=== PATIENT | female | born 1990 | race Caucasian/White ===

== ENCOUNTER 2017-12-20 22:18 | Emergency (ER) | payer OTHER ==
--- OUTSIDE RECORDS SUMMARY | 2017-12-20 22:20 | XMS REPORT ---
:1990 Author Organization eClinicalWorks Care Team Providers Name Role Phone Castillo Fry Provider Role Unavailable Allergies No Known Allergies Problems Problem Type Condition Code Onset Dates Condition Status Assessment Encounter for supervision of Z34.91 Active low-risk in first trimester Assessment Encounter to determine O36.80X0 Active viability of , single or unspecified fetus Assessment Amenorrhea N91.2 Active Assessment Missed with demise O02.1 Active before 20 completed weeks of gestation Medications No Known Medications Results No Known Results Summary Purpose eClinicalWorks Submission
--- NOTE | 2017-12-21 00:27 | EDPHYS ---
Physician Documentation [facility] Name: Alley Allen Age: 27 yrs Sex: Female : 1990 Arrival Date: 12/20/2017 Time: 22:22 Bed 20 Private MD: ED Physician Albert Leroy HPI: 12/20 23:20 This 27 yrs old Female presents to ER via Ambulatory with complaints of cp Drainage From Eye. 23:20 The patient is experiencing matting or discharge, pain, redness, to the left eye. cp Onset: The symptoms/episode began/occurred this morning. APPLICATION SUPPORT DEVELOPER: 22:52 2, Full Term 1, Living 1, LMP 09/2017 tl3 Historical: - Allergies: 22:52 No Known Allergies; tl3 - Home Meds: 22:52 None [Active]; tl3 - PMHx: 22:52 None; tl3 - PSHx: 22:52 ; tl3 - Immunization history:: Adult Immunizations up to date. - Social history:: Smoking status: Patient/guardian denies using tobacco, never smoked. - Ebola Screening: : Patient denies travel to an Ebola-affected area in the 21 days before illness onset No symptoms or risks identified at this time. ROS: 23:30 Constitutional: Negative for body aches, chills, fever, poor PO intake. cp 23:30 Respiratory: Negative for shortness of breath, cough, wheezing, and pleuritic chest cp pain. 23:30 Eyes: Positive for discharge, matting, pain, redness, Negative for visual disturbance. 23:30 ENT: Negative for drainage from ear(s), ear pain, sore throat, difficulty swallowing, difficulty handling secretions. 23:30 Skin: Negative for cellulitis, rash. 23:30 All other systems are negative. Exam: 23:35 Head/Face: Normocephalic, atraumatic. cp 23:35 Constitutional: The patient appears in no acute distress, alert, awake, non-toxic, well developed, well nourished. 23:35 Eyes: Periorbital structures: appear normal, Pupils: equal, round, and reactive to light and accomodation, Extraocular movements: intact throughout, Conjunctiva: exudate, in the left eye, injected, in the left eye, Corneas: are normal, no foreign body, Sclera: no appreciated abnormality, Anterior chamber: normal, no hyphema, Lids and lashes: drainage, from the left eye, Examination of the other eye reveals no obvious gross abnormality, right eye. 23:35 ENT: External ear(s): are unremarkable, Ear canal(s): are normal, clear, TM's: bulging, is not appreciated, bilaterally, dullness, bilaterally, erythema, is not appreciated, bilaterally, Nose: is normal, Mouth: Lips: moist, Oral mucosa: pink and intact, moist, Posterior pharynx: is normal, airway is patent, no erythema, no exudate, Voice: is normal. 23:35 Neck: ROM/movement: is normal, is supple, without pain, no range of motions limitations, no nuchal rigidity, Lymph nodes: no appreciated lymphadenopathy. 23:35 Chest/axilla: Inspection: normal. 23:35 Cardiovascular: Rate: tachycardic, Rhythm: regular. 23:35 Respiratory: the patient does not display signs of respiratory distress, Respirations: normal, no use of accessory muscles, no retractions, no splinting, no tachypnea. 23:35 Abdomen/GI: Exam negative for discomfort, distension, guarding, Inspection: abdomen appears normal. 23:35 Skin: cellulitis, is not appreciated, no rash present. Vital Signs: 22:52 BP 94 / 64; Pulse 100; Resp 18; Temp 99.3(O); Pulse Ox 100% ; Weight 49.9 kg; Height 5 tl3 ft. 3 in. (160.02 cm); 22:52 Body Mass Index 19.49 (49.90 kg, 160.02 cm) tl3 Visual Acuity: 23:35 ; PT WEARS CORRECTIVE LENSES BUT DOES NOT HAVE THEM AT THIS TIME bp MDM: 23:18 Patient medically screened. cp 12/21 00:00 Differential diagnosis: Corneal abrasion of left eye. Corneal ulcer of left eye. cp Foreign body in left eye. Infectious conjunctivitis in left eye. 00:26 Data reviewed: vital signs, nurses notes, and as a result, I will discharge patient. cp 00:26 Counseling: I had a detailed discussion with the patient and/or guardian regarding: the cp historical points, exam findings, and any diagnostic results supporting the discharge/admit diagnosis, the need for outpatient follow up, an opthalmologist, to return to the emergency department if symptoms worsen or persist or if there are any questions or concerns that arise at home. 00:26 Response to treatment: the patient's symptoms have mildly improved after treatment, and cp as a result, I will discharge patient. 12/20 23:18 Order name: Visual Acuity; Complete Time: 23:37 cp Administered Medications: 00:28 Drug: Gentamicin Drops 0.3 % 2 drops Route: Ophthalmic; Site: left eye; bp Disposition: 01:23 Co-signature as Attending Physician, Albert Leroy MD. pkl Disposition: 12/21/17 00:26 Discharged to Home. Impression: Conjunctivitis - Left Eye. - Condition is Stable. - Discharge Instructions: Conjunctivitis (Viral and Bacterial). - Prescriptions for Gentamicin 0.3 % Ophthalmic Drops - instill 1 drop by OPHTHALMIC route every 4 hours for 7 days; 1 bottle. - Medication Reconciliation Form, Thank You Letter, Antibiotic Education, Prescription Opioid Use form. - Follow up: Edmundo Rodríguez MD; When: 2 - 3 days; Reason: Recheck today's complaints. - Problem is new. - Symptoms have improved. Signatures: Albert Leroy MD MD pkl Srinivas Umana PA PA cp Peltier, Brian, RN RN bp Anni Dominguez, RN RN tl3 Corrections: (The following items were deleted from the chart) 00:33 00:26 12/21/2017 00:26 Discharged to Home. Impression: Conjunctivitis - Left Eye. bp Condition is Stable. Forms are Medication Reconciliation Form, Thank You Letter, Antibiotic Education, Prescription Opioid Use. Follow up: Edmundo Rodríguez; When: 2 - 3 days; Reason: Recheck today's complaints. Problem is new. Symptoms have improved. cp
--- NOTE | 2017-12-21 00:27 | ER ---
Nurse's Notes [facility] Name: Alley Allen Age: 27 yrs Sex: Female : 1990 Arrival Date: 12/20/2017 Time: 22:22 Bed 20 Private MD: Diagnosis: Conjunctivitis-Left Eye Presentation: 12/20 22:51 Presenting complaint: Patient states: left eye pain, with drainage started this am, was tl3 crusted shut this afternoon. Transition of care: patient was not received from another setting of care. Onset of symptoms was December 20, 2017 at 22:51. Risk Assessment: Do you want to hurt yourself or someone else? Patient reports no desire to harm self or others. Initial Sepsis Screen: Does the patient meet any 2 criteria? No. Patient's initial sepsis screen is negative. Does the patient have a suspected source of infection? No. Patient's initial sepsis screen is negative. Care prior to arrival: None. 22:51 Method Of Arrival: Ambulatory tl3 22:51 Acuity: WILIAN 4 tl3 Triage Assessment: 22:52 General: Appears uncomfortable, slender, well groomed, well developed, well nourished, tl3 Behavior is calm, cooperative, appropriate for age. Pain: Complains of pain in left eye Pain currently is 6 out of 10 on a pain scale. DIRECTOR MEETINGS: 22:52 2, Full Term 1, Living 1, LMP 09/2017 tl3 Historical: - Allergies: 22:52 No Known Allergies; tl3 - Home Meds: 22:52 None [Active]; tl3 - PMHx: 22:52 None; tl3 - PSHx: 22:52 ; tl3 - Immunization history:: Adult Immunizations up to date. - Social history:: Smoking status: Patient/guardian denies using tobacco, never smoked. - Ebola Screening: : Patient denies travel to an Ebola-affected area in the 21 days before illness onset No symptoms or risks identified at this time. Screenin:59 Abuse screen: Denies threats or abuse. Denies injuries from another. Nutritional bp screening: No deficits noted. Tuberculosis screening: No symptoms or risk factors identified. Fall Risk None identified. Assessment: 23:00 General: Appears in no apparent distress. comfortable, Behavior is calm, cooperative, bp appropriate for age. Pain: Complains of pain in right eye. Neuro: Level of Consciousness is awake, alert, obeys commands, Oriented to person, place, time, situation, Appropriate for age. Cardiovascular: No deficits noted. Respiratory: Airway is patent Respiratory effort is even, unlabored, Respiratory pattern is regular, symmetrical. GI: No signs and/or symptoms were reported involving the gastrointestinal system. : No signs and/or symptoms were reported regarding the genitourinary system. EENT: Eyes. Derm: No signs and/or symptoms reported regarding the dermatologic system. Musculoskeletal: Circulation, motion, and sensation intact. Range of motion: intact in all extremities. 12/21 00:32 Reassessment: PT D/C HOME, DX WITH LEFT EYE CONJUNCTIVITIS. bp Vital Signs: 12/20 22:52 BP 94 / 64; Pulse 100; Resp 18; Temp 99.3(O); Pulse Ox 100% ; Weight 49.9 kg; Height 5 tl3 ft. 3 in. (160.02 cm); 22:52 Body Mass Index 19.49 (49.90 kg, 160.02 cm) tl3 Visual Acuity: 23:35 ; PT WEARS CORRECTIVE LENSES BUT DOES NOT HAVE THEM AT THIS TIME bp ED Course: 22:22 Patient arrived in ED. es 22:52 Triage completed. tl3 22:52 Arm band placed on right wrist. tl3 22:58 Rigo Kurtz, STONEY is Primary Nurse. bp 23:00 Patient has correct armband on for positive identification. Bed in low position. Call bp light in reach. Side rails up X2. Adult w/ patient. 23:18 [facility]. cp 23:18 Albert Leroy MD is Attending Physician. cp 12/21 00:26 Edmundo Rodríguez MD is Referral Physician. cp 00:33 No provider procedures requiring assistance completed. Patient did not have IV access bp during this emergency room visit. Administered Medications: 00:28 Drug: Gentamicin Drops 0.3 % 2 drops Route: Ophthalmic; Site: left eye; bp Outcome: 00:26 Discharge ordered by . cp 00:33 Discharged to home ambulatory, with family. bp 00:33 Condition: stable 00:33 Discharge instructions given to patient, Instructed on discharge instructions, follow up and referral plans. medication usage, Demonstrated understanding of instructions, follow-up care, medications, Prescriptions given X 1. 00:33 Patient left the ED. bp Signatures: Jessie Oliver Corey, PA PA cp Peltier, Brian RN RN bp Anni Dominguez RN RN tl3 Corrections: (The following items were deleted from the chart) 12/20 23:05 23:00 EENT: No deficits noted. bp bp
[2017-12-21] MEDS ORDERED: GENTAMICIN 0.3% OPTH DROP 5ML ONE (00:28)
== END 2017-12-21 00:33 | disposition home or self-care (01) ==
LOC: ER 22:18
DX: H10.89 Other conjunctivitis (principal)
CPT/HCPCS: 99283